=== PATIENT | female | born 1975 | race Caucasian/White ===

== ENCOUNTER 2017-09-05 21:17 | Emergency (ER) | payer OTHER ==
[2017-09-05] MEDS ORDERED: ONDANSETRON ODT 4 MG TAB.RAPDIS. PO ×2 (22:30)
== END 2017-09-05 22:43 | disposition home or self-care (01) ==
LOC: ER 21:17
DX: G89.29 Other chronic pain (principal); R11.2 Nausea with vomiting, unspecified; R19.7 Diarrhea, unspecified; Z98.51 Tubal ligation status; Z90.49 Acquired absence of other specified parts of digestive tract; Z90.710 Acquired absence of both cervix and uterus; Z88.4 Allergy status to anesthetic agent; Z88.2 Allergy status to sulfonamides; Z88.1 Allergy status to other antibiotic agents; Z88.6 Allergy status to analgesic agent
CPT/HCPCS: 99284